=== PATIENT | male | born 1990 | race Caucasian/White ===

== ENCOUNTER 2022-10-16 18:07 | Emergency (ER) | payer OTHER ==
[2022-10-16 18:23] VITALS: BP 130/85
--- NOTE | 2022-10-16 19:12 | ED Physician Documentation ---
History of Present Illness - Stated complaint Stated Complaint: LEG INJURY - Chief complaint Chief Complaint: Trauma Ext - History obtained from History obtained from: Patient - History of Present Illness Timing: Today Pain level max: 10 Pain level now: 10 - Additonal information Additional information: Patient is a 32-year-old male who presents to the emergency department the right leg pain. He states he was playing softball today when he felt a pop in the posterior aspect of the right leg. Worse with walking, better with rest. Took Tylenol prior to arrival. No numbness or tingling. Does not take any medications regularly at home. Review of Systems Constitutional: denies: Fever, Chills Musculoskeletal: denies: Neck pain, Back pain Neurologic: denies: Focal weakness, Numbness PD PAST MEDICAL HISTORY - Past Medical History Past Medical History: No - Past Surgical History Past Surgical History: No - Present Medications Home Medications: Ambulatory Orders Medication Instructions Recorded Confirmed Cyclobenzaprine [Flexeril] 10 mg PO TID PRN #20 tablet 10/16/22 HYDROcod/ACETAM 5/325 [[place] 5/325] 1 - 2 ea PO Q6H PRN #14 tablet 10/16/22 - Allergies Allergies/Adverse Reactions: Allergies Allergy/AdvReac Type Severity Reaction Status Date / Time No Known Drug Allergies Allergy Verified 10/16/22 18:20 - Living Situation Living Arrangement: reports: At home PD ED PE NORMAL - Vitals Vital signs reviewed: Yes - General General: Alert and oriented X 3, No acute distress - HEENT HEENT: Moist mucous membranes - Derm Derm: Warm and dry - Extremities Extremities: Other (Right lower extremity - Tender palpation diffusely over the hamstring. There is tenderness up near the insertion on the pelvis. There is no tenderness at the distal insertion. There is no palpable ball. Neurovascular intact) - Neuro Neuro: Alert and oriented X 3 Results - Vitals Vitals: Vital Signs - 24 hr 10/16/22 10/16/22 18:16 20:16 Temperature 36.4 C L Heart Rate 74 74 Respiratory 14 16 Rate Blood Pressure 130/85 H O2 Saturation 100 100 Oxygen O2 Source Room air - Rads (name of study) Right femur x-ray Relevant Findings:: Final report received, See rad report PD Medical Decision Making - ED course Complexity details: reviewed results, re-evaluated patient, considered differential, d/w patient ED course: No evidence of bony avulsion on x-ray. We will treat as a hamstring strain/tear. Brett bandage applied for compression. Toradol given IM. Crutches were given. We will have him follow-up with his doctor for further care. Patient counseled regarding signs and symptoms for which I believe and urgent re-evaluation would be necessary. Patient with good understanding of and agreement to plan and is comfortable going home at this time This document was made in part using voice recognition software. While efforts are made to proofread this document, sound alike and grammatical errors may occur. Departure - Departure Disposition: Home, Self Care Clinical Impression: Hamstring strain Qualifiers: Encounter type: initial encounter Laterality: right Qualified Code(s): S76.311A - Strain of muscle, fascia and tendon of the posterior muscle group at thigh level, right thigh, initial encounter Condition: Good Instructions: ED Strain Muscle Ext Follow-Up: your,doctor in 1 week [Other] Prescriptions: Cyclobenzaprine [Flexeril] 10 mg PO TID PRN #20 tablet PRN Reason: Spasms HYDROcod/ACETAM 5/325 [[place] 5/325] 1 - 2 ea PO Q6H PRN #14 tablet PRN Reason: Pain Comments: Please follow-up with your doctor for further care. It appears that you have a hamstring strain/tear. Compression will help. You may bear weight as tolerated. Your prescriptions were sent to [facility] in [place]. These can take 6 to 8 weeks to heal. I am prescribing a short course of narcotic pain medication for you. These are potentially dangerous and addictive medications that should be used carefully. These medications may constipate you. Take an ctyv-egs-pgejkya stool softener (docusate) twice daily with plenty of water while taking these medications. If you go 24 hours without a bowel movement, take [id number] miralax, per package instructions. Do not drink or drive while taking these medications. If you received narcotic or sedating medications while in the emergency department, do not drive for 24 hours. Store this medication in a safe, secure place and out of reach of children. It is a violation of federal law to give or sell this medication to another person or to use in a manner other than prescribed. The ED will not refill narcotic prescriptions, including prescriptions lost or stolen. To dispose of unwanted medications: 1. [facility] at [address] in [place] has a medication drop box. They accept prescription medications (in pill form) Monday through Monday 9:00 a.m. to 5:00 p.m. 2. [facility] [employer] accepts prescription medications (in pill form only) for disposal year round. Call for more information. 3. Contact the [facility] for the next [facility] sponsored prescription drug collection event. , [phone], or [phone]; Discharge Date/Time: 10/16/22 20:17
[2022-10-16] MEDS: KETOROLAC 60 MG/2 ML VIAL IM STA (19:25)
--- NOTE | 2022-10-16 19:45 | XRAY Report ---
PROCEDURE: Femur 2V RT INDICATIONS: R leg pain, softball TECHNIQUE: 2 views of the femur were acquired. COMPARISON: None. FINDINGS: Bones: No displaced fracture. No dislocation identified. Soft tissues: No suspicious calcifications. IMPRESSION: No acute osseous abnormality. If there is high concern for occult injury, consider repeat radiography or cross-sectional imaging. Reviewed by: Lucas Bermduez MD on 10/16/2022 7:44 PM PDT Approved by: Lucas Bermudez MD on 10/16/2022 7:44 PM PDT Station ID: [id number]
== END 2022-10-16 20:17 | disposition home or self-care (01) ==
LOC: ED 18:07
DX: S76.311A Strain of muscle, fascia and tendon of the posterior muscle group at thigh level, right thigh, initial encounter (principal); X58.XXXA Exposure to other specified factors, initial encounter; Y93.64 Activity, baseball
CPT/HCPCS: 96372; 99283

== ENCOUNTER 2023-02-24 07:46 | Outpatient (CLI) | payer OTHER ==
--- NOTE | 2023-02-24 09:19 | MRI Report ---
PROCEDURE: LUMBAR SPINE WO INDICATIONS: LOW BACK PAIN TECHNIQUE: Noncontrast sagittal T1 spin echo and T2 fast echo, sagittal STIR, axial T1 and T2 fast spin echo thr ough the lumbar spine. In cases with scoliosis, additional coronal T2 fast spin echo may be performe d. COMPARISON: None. FINDINGS: Image quality: Excellent. Alignment and Curvature: There is normal bony alignment. Bone Marrow: Marrow is of normal overall signal. No acute vertebral body compression fractures. Spinal Cord: Conus medullaris terminates at the L2 level. Visualized cord demonstrates normal signa l and size. Paraspinous Soft Tissues: No paravertebral masses. T12-L1: Normal in appearance. L1-L2: Normal in appearance. L2-L3: Normal in appearance. L3-L4: Normal in appearance. L4-L5: Annulus tear plus minimal disc bulge. Mild facet hypertrophy. No canal stenosis or foraminal stenosis. L5-S1: Annulus tear plus minimal central posterior disc protrusion.. Mild facet hypertrophy. No can al stenosis or foraminal stenosis. IMPRESSION: 1. Annulus tear plus minimal disc bulge at L4-L5, annulus tear plus minimal central posterior disc pr otrusion at L5-S1. 2. Mild lower lumbar facet arthropathy. 3. No canal stenosis or foraminal stenosis. Reviewed by: Srinivasan Cruz MD on 02/24/2023 9:18 AM PDT Approved by: Srinivasan Cruz MD on 02/24/2023 9:18 AM PDT Station ID: [id number]
== END 2023-02-24 07:47 | disposition home or self-care (01) ==
LOC: DI 07:46
PROVIDERS: ATTEND Nurse Practitioner Family
DX: M51.36 Other intervertebral disc degeneration, lumbar region (principal); M51.27 Other intervertebral disc displacement, lumbosacral region; M51.37 Other intervertebral disc degeneration, lumbosacral region; M47.817 Spondylosis without myelopathy or radiculopathy, lumbosacral region; M47.816 Spondylosis without myelopathy or radiculopathy, lumbar region

== ENCOUNTER 2023-06-29 13:00 | Outpatient (CLI) | payer OTHER ==
--- NOTE | 2023-06-29 22:13 | XRAY Report ---
PROCEDURE: Knee 3V RT INDICATIONS: CONTUSION OF RIGHT KNEE TECHNIQUE: 3 views of the knee(s) were acquired. COMPARISON: None. FINDINGS: Bones: No fractures or dislocations. No suspicious bony lesions. Soft tissues: Small knee joint effusion. No suspicious soft tissue calcifications or masses. A soft tissue swelling. IMPRESSION: No acute bony abnormality. Small knee joint effusion. If clinical symptoms persist or there is clini magali suspicion for for internal derangement, consider MRI for follow-up. Reviewed by: Mich Ramirez MD on 06/29/2023 10:11 PM PST Approved by: Mich Ramirez MD on 06/29/2023 10:11 PM PST Station ID: [id number]
== END 2023-06-29 13:15 | disposition home or self-care (01) ==
LOC: DI.N 13:00
PROVIDERS: ATTEND Physician Assistant Medical
DX: S80.01XA Contusion of right knee, initial encounter (principal); M25.461 Effusion, right knee